=== PATIENT | male | born 1965 | race American Indian/Alaskan Native ===

== ENCOUNTER 2017-03-02 18:58 | Emergency (ER) | payer OTHER ==
[~2017-03-02] VITALS: Ht 195.6 cm; Wt 126.2 kg
[~2017-03-02 18:58] MED LIST: ACETAMINOPHEN325 M1 PO; AMOXICILLIN500 MG PO; FLAGYL500 MG PO; LEVAQUIN500 MG PO; OMEPRAZOLE20 MG PO; TESSALON PERLE100 MG PO; TRAMADOL HCL50 MG PO; ZITHROMAX500 MG PO
[2017-03-02] MEDS ORDERED: STROMECTOL3 MG PO (20:11)
[2017-03-02] MEDS ORDERED: TOPAMAX50 MG PO (20:12)
[2017-03-02] MEDS ORDERED: IMITREX50 MG PO (20:14)
[2017-03-02] MEDS ORDERED: ZOFRAN4 MG PO (20:16)
== END 2017-03-03 | disposition home or self-care (01) ==
LOC: ED 18:58
DX: G40.89 Other seizures (principal); Z90.49 Acquired absence of other specified parts of digestive tract; Z88.5 Allergy status to narcotic agent; Z79.899 Other long term (current) drug therapy
CPT/HCPCS: 36415; 70450; 80053; 81001; 83735; 85025; 96374; 96375; 99284; J2270; J2405; J7030

== ENCOUNTER 2017-06-12 13:51 | Emergency (ER) | payer OTHER ==
[~2017-06-12] VITALS: Ht 195.6 cm; Wt 113.4 kg
[~2017-06-12 13:51] MED LIST changes: +IMITREX50 MG PO; +STROMECTOL3 MG PO; +TOPAMAX50 MG PO; +ZOFRAN4 MG PO
[2017-06-12] MEDS ORDERED: KETOROLAC TROME10 MG PO (16:06)
== END 2017-06-12 14:05 | disposition home or self-care (01) ==
LOC: ED 13:51
DX: Z00.8 Encounter for other general examination (principal)

== ENCOUNTER 2017-06-12 15:22 | Emergency (ER) | payer OTHER ==
[~2017-06-12] VITALS: Ht 195.6 cm; Wt 113.4 kg
[2017-06-12] MEDS ORDERED: KETOROLAC TROME10 MG PO (16:06)
== END 2017-06-12 16:15 | disposition home or self-care (01) ==
LOC: ED 15:22
DX: S60.221A Contusion of right hand, initial encounter (principal); M25.521 Pain in right elbow; Z90.49 Acquired absence of other specified parts of digestive tract; Z88.5 Allergy status to narcotic agent; Z79.899 Other long term (current) drug therapy; W01.0XXA Fall on same level from slipping, tripping and stumbling without subsequent striking against object, initial encounter
CPT/HCPCS: 73090; 73130; 99283

== ENCOUNTER 2018-03-14 12:41 | Emergency (ER) | payer BC ==
[~2018-03-14] VITALS: Ht 195.6 cm; Wt 113.5 kg
[~2018-03-14 12:41] MED LIST changes: +KETOROLAC TROME10 MG PO
== END 2018-03-14 13:45 | disposition home or self-care (01) ==
LOC: ED 12:41
PROC: 0HQ1XZZ Repair Face Skin, External Approach (ICD-10-PCS; principal; 2018-03-14)
DX: S01.111A Laceration without foreign body of right eyelid and periocular area, initial encounter (principal); Z88.5 Allergy status to narcotic agent; Z23 Encounter for immunization; W22.8XXA Striking against or struck by other objects, initial encounter
CPT/HCPCS: 12011; 90471; 90715; 99282

== ENCOUNTER 2020-12-03 09:31 | Emergency (ER) | payer BC ==
[~2020-12-03] VITALS: Ht 195.6 cm; Wt 113.5 kg
--- OUTSIDE RECORDS SUMMARY | 2020-12-03 09:34 | XMS ---
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 Care History Medical/Surgical 03/15/2018 [facility] - Patient is currently established with [facility]. If patient is seen in the ED during business hours. Please contact CHWs at [facility]. Care Recommendation: This patient has had 5 or more Emergency Department visits in the last 12 months.\T\nbsp; Patient requires education on the scope and purpose of the ED as an acute care provider not a Primary Care Provider and should not be utilized for chronic conditions.\T\nbsp; These are guidelines and the provider should exercise clinical judgment when providing care. E.D. VISIT COUNT (12 MO.) 1 [facility] TOTAL 1 NOTE: Visits indicate total known visits. ED/UCC VISIT TRACKING (12 MO.) 12/03/2020 09:[address] [facility] [place] TYPE: Emergency COMPLAINT: - SEIZURE INPATIENT VISIT TRACKING (12 MO.) No inpatient visits to display in this time frame [email or web address]
--- NOTE | 2020-12-03 13:57 | EKG ---
[facility] [address] [facility] [place], [place] [address] Signed Normal sinus rhythm Normal ECG Confirmed by RICHIE ELLISON DO ([id number]) on 12/03/2020 1:57:11 PM Electronically Signed By: RICHIE ELLISON DO 12/03/20 1357 PATIENT NAME: NETTA DAVIS Electrocardiogram DATE OF : 67 PHYSICIAN: RICHIE ELLISON DO REPORT #: [id number] REPORT IS CONFIDENTIAL AND NOT TO BE RELEASED WITHOUT AUTHORIZATION
== END 2020-12-03 15:38 | disposition home or self-care (01) ==
LOC: ED 09:31
DX: G40.909 Epilepsy, unspecified, not intractable, without status epilepticus (principal); Z20.822 Contact with and (suspected) exposure to COVID-19; Z88.5 Allergy status to narcotic agent
CPT/HCPCS: 80053; 81001; 85025; 93005; 93010; 96374; 96375; 99284-25; C9803; J2060; Q2009; U0003

== ENCOUNTER 2022-12-22 10:30 | Day surgery (SDC) | payer BC ==
[2022-12-20 10:38] VITALS: BP 126/89
[~2022-12-22] VITALS: Ht 195.6 cm; Wt 123.6 kg
[~2022-12-22 10:30] MED LIST changes: +ONDANSETRON ODT8 MG PO; +OSTERA TABLET1 EACH PO; +OXYCODONE HCL5 MG PO
[2022-12-22 10:42] VITALS: BP 142/84
--- NOTE | 2022-12-22 12:33 | NUR ---
12/22/22 1233 [place] 1223-PATIENT ARRIVED TO PACU ON 4L NC RR EVEN. PATIENT LAYING PRONE AROSUES TO VERBAL STIMULI DENIES PAIN OR NAUSEA. IVF INFUSING. BANDAID TO BACK CDI. 1230-PATIENT SLEEPING AROUSES TO VERBAL SITMULI DENIES PAIN OR NASUEA. PLACED ON RA RR EVEN 94%
[2022-12-22 12:59] VITALS: BP 100/63
--- NOTE | 2022-12-27 15:50 | PATH ---
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 See attached. D64.9 (anemia, unspecified) DIAGNOSIS SUMMARY: Peripheral blood - Unremarkable. - No circulating blasts are identified. Bone marrow biopsy and aspiration: - Hypercellular marrow, 80%, with 1% blasts. - Trilineage hematopoiesis with no significant dyspoiesis. - Megakaryocytic hyperplasia with no atypia. - 6% polyclonal plasma cells. - Increased PAX5-positive B-cells. - Decreased marrow iron stores by Prussian Blue staining. - See Diagnostic Comment. DIAGNOSTIC COMMENT: The marrow is hypercellular (80%) with megakaryocytic hyperplasia. PAX5-positive B-cells are mildly increased at 5% with no atypical aggregates. Flow cytometry analysis of the lymphocytes was unremarkable. B-cell gene rearrangement studies are pending, and the result will be reported in an addendum. The etiology for the hypercellular marrow is unclear. No significant dyspoiesis was identified. Potential etiologies for the hypercellular marrow would include infection (viral), drug effect (i.e. steroids), autoimmune conditions, or liver disease. A myeloproliferative neoplasm is not favored but a JAK2 V617F mutation analysis is requested and the result will be reported in an addendum. Clinical correlation is needed. Marrow iron stores appeared decreased by Prussian Blue staining. Correlation with serum iron studies is suggested. THOMASP:C2NR HISTORICAL SUMMARY: 57-year-old male with no prior hematology history in the [employer] data base. He has a history of ITP in 1994 treated with prednisone and splenectomy. He PATIENT NAME: NETTA DAVIS PATHOLOGY DATE OF : 67 REPORT #: [id number] PHYSICIAN: DANIELA PATHOLOGY PCP: DIXIE ROBLES PAC REPORT IS CONFIDENTIAL AND NOT TO BE RELEASED WITHOUT AUTHORIZATION [facility] [address] [place], [place] [address] Signed presents for evaluation of a clinical history of hypoplastic anemia. PERIPHERAL BLOOD: HEMOGRAM (12/22/2022): WBC 5.6 K/ul, RBC 4.69 M/ul, HGB 13.0 g/dl, HCT 39.1%, MCV 83.5 fl, MCH 27.7 pg, MCHC 33.2 g/dl, RDW 16.8%, PLT 323 K/ul, MPV 8.9 fl. Absolute neutrophil count 1,900/ul. AUTOMATED DIFFERENTIAL COUNT: Neutrophils 33.1%, lymphocytes 54.3%, monocytes 8.0%, eosinophils 3.8%, basophils 0.8%. The red blood cells are normocytic and normochromic with mild anisopoikilocytosis. The neutrophils are relatively decreased with an unremarkable morphology. Lymphocytes are composed of small mature appearing forms and large granular lymphocytes. Platelets appear normal in number and morphology with no platelet clumping or RBC microangiopathic effect identified. No blasts are identified. BONE MARROW: ASPIRATE SMEARS/TOUCH IMPRINT: The aspirate smears are adequate for evaluation. Scattered erythroid precursors show adequate maturation with essentially normal morphology. The myeloid precursors show full maturation with unremarkable morphology. Plasma cells appear mildly increased with a normal morphology. There is no increase in blasts. Megakaryocytes are identified with a normal morphology. BONE MARROW DIFFERENTIAL COUNT (300 cells): Blasts 1%, promyelocytes 1%, myelocytes 7%, metamyelocytes/bands/segs 28%, erythroid precursors 36%, lymphocytes 11%, monocytes 6%, eosinophils 4%, plasma cells 6%. M:E ratio: 1.1:1 BONE MARROW CORE BIOPSY/ASPIRATE CLOT/CELL BLOCK: The aspirate clot section and the core biopsy are adequate for evaluation. The core biopsy demonstrates unremarkable trabecular bone. The cellularity is increased for age, estimated at 80%. The erythroid precursors are within normal limits with essentially unremarkable maturation. The myeloid precursors are unremarkable with no significant dyspoiesis. Blasts are not increased. Plasma cells appear mildly increased with a normal morphology. Megakaryocytes appear increased in number with a normal morphology. No granulomas, atypical lymphoid aggregates or foreign malignant cells are detected. SPECIAL STAINS (with adequate controls): - iron (aspirate smear): Marrow iron stores appear decreased by Prussian Blue staining. No ring sideroblasts are identified. PATIENT NAME: NETTA DAVIS PATHOLOGY DATE OF : 67 REPORT #: [id number] PHYSICIAN: DANIELA PATHOLOGY PCP: DIXIE ROBLES REPORT IS CONFIDENTIAL AND NOT TO BE RELEASED WITHOUT AUTHORIZATION [facility] [address] [place] [id number] Signed - iron (cell block): Marrow iron stores appear decreased by Prussian Blue staining. No ring sideroblasts are identified. - PAS (block A1): Increased megakaryocytes with a normal morphology. IMMUNOHISTOCHEMISTRY STAINS (performed on block A1 with adequate controls). - CD3: 5-8% with focal small aggregates. - CD8: 3% - CD71: 40% - PAX5: 5%, increased with no aggregates. - CD138: 6% - REGULO [place] and Lambda: Polyclonal marking in the plasma cells. FLOW CYTOMETRY: Bone marrow, flow cytometry: - No diagnostic abnormal populations are identified by flow cytometry. - See Comment. COMMENT: The majority of the gated lymphocytes are T-cells with a normal marking pattern. The B-cells are unremarkable with no light chain restriction or aberrant marking. Blasts are not increased. No aberrant marking is detected in the myeloid or monocyte gate areas. Plasma cells are not increased. Correlation with histologic findings is required. FLOW CYTOMETRY ANALYSIS: FLOW DIFFERENTIAL (% Total CD45 vs. SSC gating): Myeloid 65%; Lymphoid 15%; Monocyte 4%; Dim CD45/Blast: 1.6%. Cell Count: 4.5 x 10*3/uL. POPULATION ANALYSIS: BLASTS: Analysis of the dim CD45 gate demonstrates 1.6% myeloblasts by CD34/CD117 and 7.0% hematogones. LYMPHOID CELLS: The lymphocyte gate comprises 15% of total events and includes 66% T-cells with a CD4:CD8 ratio of 0.9:1 and normal mcneill T-cell antigen expression. 32% of lymphocytes are polyclonal B-cells with a kappa:lambda ratio of 2.0:1. The remainders are NK-cells. MYELOID CELLS: The myeloid population comprises 65% of the total events. No aberrant immunophenotypic expression is detected. MONOCYTES: The monocyte population comprises 4% of the total events. Monocytes are not increased. No aberrant immunophenotypic expression is detected. PLASMA CELLS: 0.8% plasma cells are detected in the screening gate neg-dimCD45/CD38. Plasma cells are CD45 dim and positive for CD19. ANTIBODIES USED: KAPPA, LAMBDA, CD20, CD10, CD19, CD23, CD38, CD16, CD56, CD8, CD5, CD2, CD4, CD7, CD3, CD14, CD33, CD13, HLADR, CD34, CD117, CD15, CD45: TOTAL ANTIBODIES PATIENT NAME: NETTA DAVIS PATHOLOGY DATE OF : 67 REPORT #: [id number] PHYSICIAN: DANIELA PATHOLOGY PCP: DIXIE ROBLES PAC REPORT IS CONFIDENTIAL AND NOT TO BE RELEASED WITHOUT AUTHORIZATION [facility] [address] [place], [place] [address] Signed USED: 23. DKW FINAL DIAGNOSIS PERFORMED BY: Fausto Haley MD, Dec 23 2022 1:39PM CYTOGENETICS: Chromosome analysis is pending, and the result will be reported in an addendum. B-CELL (GAMMA) GENE REARRANGEMENT PCR ANALYSIS: Because of increased B-cells in a setting of prior splenectomy, B-cell gene rearrangement studies are requested, and the result will be reported in an addendum. GROSS DESCRIPTION: Two specimens are received in two containers. A. The specimen, labeled and designated "December, bone marrow core biopsy," is received in formalin and consists of a red-maria, cylindrical core of bone (1.3 cm in length x 0.2-0.3 cm in diameter). The specimen is submitted entirely in cassette (A1) following decalcification in Immunocal. B. The specimen, labeled and designated "December, bone marrow clot biopsy," is received in formalin and consists of a portion of red-brown clot-like material (2.0 x 1.1 x 0.4 cm in aggregate). The specimen is submitted entirely in cassette (B1). VB (under the direct supervision of a pathologist) The Gross Description was prepared using a voice recognition system. The report was reviewed for accuracy; however, sound-alike word errors, addition and/or deletions may occur. If there is any question about this report, please contact Client Services. ADDITIONAL NOTES: Immunohistochemical and/or in situ hybridization studies were performed on this case with the appropriate positive controls that react as expected. This test was developed and its performance characteristics determined by [email or web address]. It has not been cleared or approved by the U.S. Food and Drug Administration. The FDA has determined that such clearance or approval is not necessary. This test is used for clinical purposes. It should not be regarded as investigational or for research. [email or web address] is certified under the Clinical Laboratory Improvement Amendments of 1988 (CLIA) as qualified to perform high complexity clinical laboratory testing. This assay has not been validated for specimens that have been decalcified. PATIENT NAME: NETTA DAVIS PATHOLOGY DATE OF : 67 REPORT #: [id number] PHYSICIAN: DANIELA DISLA PCP: DIXIE ROBLES PAC REPORT IS CONFIDENTIAL AND NOT TO BE RELEASED WITHOUT AUTHORIZATION [address] [address] Signed In this case, certain antibodies were performed by both immunohistochemistry and flow cytometry analysis because flow cytometry analysis did not fully explain all the light microscopic findings. Immunohistochemistry aided in the analysis. Both methods are deemed medically necessary in this case. This test was developed and its performance characteristics determined by [email or web address]. It has not been cleared or approved by the US Food and Drug Administration. The FDA does not require this test to go through premarket FDA review. This test is used for clinical purposes. It should not be regarded as investigational or for research. This laboratory is certified under the Clinical Laboratory Improvement Amendments (CLIA) as qualified to perform high complexity clinical laboratory testing. PERFORMING LABORATORY: The technical preparation was performed by [email or web address], [address] [place] [address] (CLIA#: [id number]). Professional interpretation was performed by [email or web address] [address] [id number] (CLIA#: [id number]). A portion of the technical component was performed by [email or web address], [address] [place] [address] (CLIA# [id number]). A portion of the technical component was performed by [email or web address], [address] [place] [id number] (CLIA#: [id number]). Professional interpretation was performed by [facility], [address] [place] [phone] (CLIA#: [id number]). IMAGES: [id number]: [id number] A: [id number] Diagnostician: Fausto Haley MD Pathologist Electronically Signed 12/27/2022 Copies: ~ PATIENT NAME: NETTA DAVIS PATHOLOGY DATE OF : 67 REPORT #: [id number] PHYSICIAN: DANIELA PATHOLOGY PCP: DIXIE ROBLES PAC REPORT IS CONFIDENTIAL AND NOT TO BE RELEASED WITHOUT AUTHORIZATION
== END 2022-12-22 13:05 | disposition home or self-care (01) ==
LOC: OPS 10:30 → DS 10:30 → OPS 12:00
PROVIDERS: ATTEND Specialist
DX: D75.89 Other specified diseases of blood and blood-forming organs (principal); D61.9 Aplastic anemia, unspecified; F17.220 Nicotine dependence, chewing tobacco, uncomplicated; Z88.5 Allergy status to narcotic agent; Z79.899 Other long term (current) drug therapy
CPT/HCPCS: 01112; 36415; 80053; 82024; 82533; 83615; 84403; 84436; 84443; 85007; 85025; 85651; 86038; 86140; 86431; J2704; J7121

== ENCOUNTER 2023-04-19 08:00 | Day surgery (SDC) | payer BC ==
[2023-04-14 14:33] VITALS: BP 118/76
[~2023-04-19] VITALS: Ht 195.6 cm; Wt 127.0 kg
[~2023-04-19 08:00] MED LIST changes: +NEURONTIN300 MG PO; +TRAMADOL HCL200 M1 PO
[2023-04-19 08:19] VITALS: BP 141/85
[2023-04-19] MEDS ORDERED: TYLENOL EXTRA500 MG PO (08:25)
[2023-04-19] MEDS ORDERED: GEN7T1 EACH TD (08:26)
[2023-04-19] MEDS ORDERED: IBUPROFEN600 MG PO (11:28)
[2023-04-19] MEDS ORDERED: OXYCODON-ACETA1 EAC2 PO (11:28)
[2023-04-19] MEDS ORDERED: ACETAMINOPHEN500 MG PO (11:29)
[2023-04-19 12:11] VITALS: BP 122/70
--- NOTE | 2023-04-19 12:14 | NUR ---
04/19/23 1214 Shraddha Escobar 1112- PT ARRIVES TO UNIT VIA STRETCHER FROM OR. PT IS NONRESPONSIVE TO TACTILE STIMULI AND REQUIRES JAW THRUST FOR SUPPORT. PT ON 8L OF O2 VIA MASK W/O2 >90% AT THIS TIME. PT RESPIRATIONS ARE EVEN AND UNLABORED, NO SIGNS OF DISTRESS. DONNY HATFIELD AT BEDSIDE FOR REPORT AT THIS TIME. 1118- PT TITRATED TO 6L VIA MASK, HEAD REPOSITIONED AT THIS TIME AND NO JAW THRUST REQUIRED. PT RESPIRATIONS EVEN AND UNLABORED, NO SIGNS OF DISTRESS. PT REMAINS UNRESPONSIVE TO TACTILE STIMULI. 1121- PT RESPONSIVE TO TACTILE STIMUL AT THIS TIME. PT RESPIRATIONS EVEN AND UNLABORED, NO SIGNS OF DISTRESS. 1123- PT REPORTS NO PAIN OR NAUSEA AND RESPONDS W/NODDING YES/NO. PT TITRATED TO 2L VIA MASK AT THIS TIME AND O2 SATS >90% VIA MASK. RESPIRATIONS EVEN AND UNLABORED. 1130- PT RESPONSIVE TO VERBAL STIMULI AND TITRATED TO RA AT THIS TIME, O2 >90% VIA PULSE OX. RESPIRATIONS EVEN AND UNLABORED. PT AWAKE AT THIS TIME AND ASKING APPROPRIATE QUESTIONS. PT REPORTS NO PAIN OR NAUSEA. 1131- MARIS ACOSTA AT BEDSIDE DISCUSSING PROCEDURE W/PT AT THIS TIME. PT ASKING QUESTIONS APPROPRIATELY AND IS ALERT/ORIENTED. 1140- PT REPORTS PAIN ONLY W/LIFTING SURGICAL EXTREMITY SIDE. PT REPORTS NO NAUSEA AT THIS TIME. PT MAINTAINING O2 SATS >90% VIA RA AT THIS TIME, RESPIRATIONS EVEN AND UNLABORED. 1150- PT TRANSPORTED TO DAY SURGERY UNIT VIA STRETCHER FROM PACU. PT REPORTS PAIN INCREASING IN MID BACK, PT STATES THIS IS CHRONIC AND WORSENS WHEN LAID DOWN FLAT. PT REPORTS TAKES 300 MG 3X DAILY W/TYLENOL FOR CHRONIC BACK PAIN AND HAS NOT TAKEN ANY TODAY THUS FAR. DORON MORALES AT BEDSIDE W/ FOR REPORT. HEAT PACK PROVIDED WRAPPED IN TOWEL BY THIS RN FOR PAIN RELIEF, PT SIGHS IN RELIEF W/REPOSITIONING AND APPLICATION OF HEAT PACK. CALL LIGHT WITHIN REACH, PT STATES NO FURTHER NEEDS AT THIS TIME.
--- NOTE | 2023-04-19 12:15 | NUR ---
1150: PT RETURNS TO DAY SURGERY FROM PACU. AWAKE AND ALERT ON ARRIVAL. VSS, RESP EVEN AND UNLABORED. DRESSING C/D/I. SCDS IN PLACE. DENIES NAUSEA. KAVIN PO INTAKE. REPORTS BACK PAIN, 01/29. CHRONIC PER PT. PT REPORTS NORMALLY TAKING SCHEDULED GABAPENTIN. TC PLACED TO MD MARIS. VERBAL ORDER RECEIVED TO ADMINISTERED 300MG GABAPENTIN PO. PHARMACY NOTIFIED. POC DISCUSSED AND PT AGREEABLE. NO NEEDS VOICED, CALL LIGHT WITHIN REACH
[2023-04-19 13:15] VITALS: BP 102/61
[2023-04-19 14:20] VITALS: BP 132/79
[2023-04-19 15:22] VITALS: BP 142/84
[2023-04-19 16:10] VITALS: BP 121/83
--- NOTE | 2023-04-19 17:17 | NUR ---
[id number]: PT CONT TO REST IN BED WITH SPOUSE AT BEDSIDE, RATES PAIN IN LEFT AXILLA 7/10 "SHARP AND DEEP" WHEN DESCRIBED. PT TOLERATES PO WELL WITH NO NAUSEA AND ADMINISTERED PO PAIN MEDS. CALL LIGHT WITHIN REACH. [id number]: PT RESTING IN BED WITH SPOUSE AT BEDSIDE. CONT TO HAVE CHRONIC BACK PAIN AND STATES LEFT AXILLA STILL HURTING. PT EDUCATED ABOUT PO PAIN MEDS AND TIME TO TAKE EFFECT. [id number]: PT RATES PAIN IN LEFT AXILLA 9/10 AND MEDICATED, SEE EMAR. [id number]: PT SPOUSE SHOWS THIS RN PT BACK AND STATES DISCOLORATION ON LEFT SIDE THAT IS NOT NORMALLY THERE. PT SPOUSE ASKS IF PT COULD HAVE INTERNAL BLEEDING AND DR. POLLOCK MADE AWARE OF PT STATUS. PT UP TO BATHROOM WITH RN ASSIST, UNSTREADY ON FEET AT BASELINE. PT ABLE TO VOID 275 MLS NANCY COLORED URINE AND BACK TO BED. [id number]: DR. POLLOCK IN TO ASSESS PT, DOES NOT THINK THAT PT HAS BRUISING AND GIVES VERBAL FOR PO DILAUDID AND ALSO WRITES PRESCRIPTION FOR PT AT HOME. [id number]: LUNCH ORDERED FOR PT AT THIS TIME. PT CONT TO REST IN BED WITH SPOUSE AT BEDSIDE. [id number]: PT STATES PAIN IN LEFT AXILLA IS BETTER AND RATES 3/10 BUT STATES THAT CHRONIC BACK PAIN "IS SUPER BAD." PT READY TO GO HOME AT THIS TIME TO BE MORE COMFORTABLE. PT DRESSES SELF WITH HELP FROM SPOUSE AND ENCOURAGED TO OPEN CURTAIN WHEN FINISHED. [id number]: IV REMOVED WNL AND PRESSURE COBAN PLACED. DC INSTRUCTIONS GIVEN VERBALLY AND WRITTEN TO PT AND SPOUSE. PAIN PRESCRIPTIONS INSIDE DC FOLDER AND SPOUSE AWARE OF NEED TO TAKE TO PHARMACY TO HAVE FILLED. [id number]: PT DC FROM DS TREATMENT ROOM TO SPOUSE WAITING AT HOSPITAL FRONT ENTRANCE IN PERSONAL VEHICLE VIA WC TO HOME.
--- NOTE | 2023-04-21 10:42 | OR ---
[facility] [address] [place], [place] [address] Signed DATE OF OPERATION: 04/19/2023 SURGEON: Jericho Pollock MD PREOPERATIVE DIAGNOSES: 1. Diffuse lymphadenopathy. 2. Obesity. POSTOPERATIVE DIAGNOSES: 1. Diffuse lymphadenopathy. 2. Obesity. PROCEDURE: Excision of deep left axillary lymph nodes x2. ANESTHESIA: General LMA, [place] Pineda CRNA INDICATIONS: This 57-year-old white man is a patient of Dr. Stacy and additionally Dr. Garcia. He has diffuse adenopathy most recently demonstrated bilateral axillary adenopathy. He has a distant history of ITP in 1994, treated with splenectomy with good results. He has had bone marrow biopsy undertaken by Dr. 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 An MRI performed in February 2023 at [facility] showed extensive cervical adenopathy and retroperitoneal and iliac lymph node enlargement as well. Consideration is made he may have lymphoma. He has no constitutional symptoms of night sweats, though he has had a fair amount of fatigue. The ultrasound of the axilla on right and left sides on April 12, 2023, under the direction of Dr. Garcia showed bilateral enlarged axillary lymph nodes. The left was 2.1 cm and the right 1.7 cm. He has been initiated on testosterone replacement therapy for a very low testosterone level. This no doubt it is related to his Klinefelter syndrome. He is admitted at this time to undergo left axillary lymph node biopsy for diagnosis for strong suspicion of lymphoma. FINDINGS: Palpable adenopathy of left axilla was noted. The excised lymph node was 2.5 to 3 cm in size. An additional lymph node was excised similarly. The lymph node appeared highly probable to be lymphoma clinically. Of the two specimens, one did have pigmentation within the lymph node and although not melanin was unusual in its appearance for that Electronically Signed By: JERICHO POLLOCK MD 04/21/23 1042 PATIENT NAME: NETTA DAVIS OPERATIVE REPORT DATE OF : 67 REPORT #: [id number] PHYSICIAN: JERICHO POLLOCK MD PCP: TREMAYNE STACY MD REPORT IS CONFIDENTIAL AND NOT TO BE RELEASED WITHOUT AUTHORIZATION [facility] [address] [place], [place] [address] Signed reason. There were additional palpable lymph nodes in the axilla, which were left in situ. DESCRIPTION OF PROCEDURE: The patient was brought to the operating room, given a general LMA type anesthetic. Preoperative antibiotic Ancef was given. Sequential compression device stockings were used. The left axilla was clipped and prepared with a chlorhexidine solution and draped sterilely. Palpation of the axilla identified deep axillary adenopathy. A transverse incision was made in the mid axilla. Dissection was carried through the dermis and subcutaneous tissue with electrocautery. The axillary fat pad fascial envelope was incised allowing for palpation deep within the axilla itself. Easily noted was a relatively large palpable lymph node. This was grasped with an Allis clamp, elevated and the pedicle secured with hemostats and later secured with 2-0 Vicryl suture. The original lymph node was excised. A call to the Pathology Department to receive the lymph node fresh went unanswered and on that basis, the lymph node was placed in saline anticipating coordination with the Pathology Department later. A fresh lymph node was deemed advisable for advanced testing to characterize lymphoma if present. Additional palpation revealed another similar size lymph node, which was excised in this similar way also. This was placed in formalin as a backup specimen should there be any issue with processing of the original specimen. Irrigation was undertaken. The wound was closed in layers with interrupted 2-0 Vicryl and a running subcuticular 3-0 Vicryl for the skin. Steri-Strips were applied as was an Acticoat dressing. Blood loss was minimal overall. Sponge, needle, and instrument counts reported as correct x3. Jericho Pollock MD JM/MODL /[id number] cc: MD Ashwin Rivera MD Electronically Signed By: JERICHO POLLOCK MD 04/21/23 1042 PATIENT NAME: NETTA DAVIS OPERATIVE REPORT DATE OF : 67 REPORT #: [id number] PHYSICIAN: JERICHO POLLOCK MD PCP: TREMAYNE STACY MD REPORT IS CONFIDENTIAL AND NOT TO BE RELEASED WITHOUT AUTHORIZATION [address] [address] Signed Copies: ASHWIN GARCIA MD ~ Electronically Signed By: JERICHO POLLOCK MD 04/21/23 1042 PATIENT NAME: NETTA DAVIS OPERATIVE REPORT DATE OF : 67 REPORT #: [id number] PHYSICIAN: JERICHO POLLOCK MD PCP: TREMAYNE STACY MD REPORT IS CONFIDENTIAL AND NOT TO BE RELEASED WITHOUT AUTHORIZATION
--- NOTE | 2023-04-22 15:32 | PATH ---
[facility] [address] [facility] [place], [place] [address] Signed SPECIMEN(S): A LEFT AXILLARY LYMPH NODE SPECIMEN(S): B ADDITIONAL LEFT AXILLARY LYMPH NODE SPECIMEN SOURCE: A. LEFT AXILLARY LYMPH NODE B. ADDITIONAL LEFT AXILLARY LYMPH NODE CLINICAL HISTORY: A. Left axillary lymph node. Axillary lymphadenopathy. B. Additional left axillary lymph node. Axillary lymphadenopathy. Access for lymphoma. FINAL PATHOLOGIC DIAGNOSIS: A-B. Lymph nodes, left axillary, excision: - Florid reactive follicular hyperplasia, see description and comment COMMENT: Concurrent flow cytometric analysis demonstrates no diagnostic abnormal populations, supporting the above interpretation. The presence of pigmented macrophages may suggest a component of dermatopathic lymphadenitis, though clinical correlation is needed. BRP The majority of the gated lymphocytes are T-cells with an essentially normal marking pattern. The B-cells are unremarkable with no light chain restriction or aberrant marking. Blasts are not increased. Correlation with histologic findings is recommended to exclude disorders that can have normal flow cytometry findings such as Classical Hodgkin lymphoma, some non-Hodgkin lymphomas, and non-hematopoietic tumors. FLOW CYTOMETRY ANALYSIS: FLOW DIFFERENTIAL (% Total CD45 vs. SSC gating): Lymphoid 95%; Debris 1%. Cell Count: 1.3 x 10*4/uL. Total Viability: 90% POPULATION ANALYSIS: LYMPHOID CELLS: The lymphocyte gate comprises 95% of total events and includes 41% T-cells with a CD4:CD8 ratio of 4.4:1 and normal mcneill T-cell antigen expression. 59% of lymphocytes are polyclonal B-cells with a kappa:lambda ratio of 1.5:1. A polyclonal B-cell subset is detected (6% of lymphocytes, 6% of total events) co-expressing CD10 and CD20 with a kappa:lambda ratio of 2.3:1. PLASMA/PLASMACYTOID CELLS: 3.4% plasma/plasmacytoid cells are detected in the screening gate neg-dim CD45/CD38 expressing CD45 dim and positive for CD19. PATIENT NAME: NETTA DAVIS PATHOLOGY DATE OF : 67 REPORT #: [id number] PHYSICIAN: DANIELA PATHOLOGY PCP: TREMAYNE HAYES MD REPORT IS CONFIDENTIAL AND NOT TO BE RELEASED WITHOUT AUTHORIZATION [facility] [address] [place], [place] [address] Signed ANTIBODIES USED: KAPPA, LAMBDA, CD20, CD10, CD19, CD23, CD38, CD16, CD56, CD8, CD5, CD2, CD4, CD7, CD3, CD45, 7AAD: TOTAL ANTIBODIES USED: 17. JNB FLOW CYTOMETRY: Left axillary lymph node, flow cytometry: - No diagnostic abnormal populations are identified by flow cytometry. - See comment. MICROSCOPIC EXAMINATION: Histologic sections of all submitted blocks (or IHC as applicable) are digitally scanned and examined. These findings, together with the gross examination, support the pathologic diagnosis. Sections of parts A and B show similar morphologic findings and are described together. The lymph node architecture demonstrates expanded secondary follicles of varying size with preserved polarity and mild paracortical expansion. There are scattered pigmented macrophages, more prominent in part B. No malignant epithelial cells, atypical lymphoid cells, or granuloma are seen. Immunohistochemical stains demonstrate the following: CD3: Stains paracortical T cells CD5: Stains paracortical T cells CD10: Positive in lymphoid follicles CD20: Positive in lymphoid follicles CD21: Stains the follicular dendritic cell meshwork CD23: Stains the follicular dendritic cell meshwork CD43: Stains paracortical T cells CD138: Stains scattered plasma cells BCL2: Positive in paracortical T cells; negative in germinal centers BCL6: Positive in germinal centers Cyclin D1: Negative PAX5: Positive in lymphoid follicles Ki-67: Positive in germinal centers, proliferation index approximately 5% [place] (inna): Stains scattered plasma cells Lambda (inna): Stains scattered plasma cells BRP GROSS DESCRIPTION: A. The specimen, labeled and designated "December, left axillary lymph node," is received fresh and consists of irregular shaped yellow-maria fibroadipose tissue PATIENT NAME: NETTA DAVIS PATHOLOGY DATE OF : 67 REPORT #: [id number] PHYSICIAN: DANIELA PATHOLOGY PCP: TREMAYNE HAYES MD REPORT IS CONFIDENTIAL AND NOT TO BE RELEASED WITHOUT AUTHORIZATION [facility] [address] [place], [place] [address] Signed that measure 4.2 x 2.5 x 1.8 cm. Sectioning through the specimens reveal pink-maria nodule that measure 3.5 x 1.5 x 1.5 cm. Sectioning through the nodule reveals a pink-maria fleshy surface. Part of the nodule is placed in RPMI and sent for lymphoma triage. The remaining of the specimen is sectioned and entirely submitted in (A1-A3). B. The specimen, labeled and designated "December, additional left axillary lymph node," is received in formalin and consists of one irregular shaped yellow-maria fibroadipose tissue that measure 4.2 x 2.0 x 1.5 cm. Sectioning through the specimen to reveal pink-maria nodule that measure 2.2 x 2.0 x 1.5 cm. Sectioning through the nodule reveal pink-maria, fleshy surface. Entire nodule is submitted in (B1-B2). JS (under the direct supervision of a pathologist) The Gross Description was prepared using a voice recognition system. The report was reviewed for accuracy; however, sound-alike word errors, addition and/or deletions may occur. If there is any question about this report, please contact Client Services. ADDITIONAL NOTES: Immunohistochemical and/or in situ hybridization studies were performed on this case with the appropriate positive controls that react as expected. This test was developed and its performance characteristics determined by [employer]. It has not been cleared or approved by the U.S. Food and Drug Administration. The FDA has determined that such clearance or approval is not necessary. This test is used for clinical purposes. It should not be regarded as investigational or for research. [employer] [employer] is certified under the Clinical Laboratory Improvement Amendments of 1988 (CLIA) as qualified to perform high complexity clinical laboratory testing. This assay has not been validated for specimens that have been decalcified. PERFORMING LABORATORY: Technical component was performed by [facility], [address] [place] [address] (CLIA# [id number]). Professional interpretation was performed by [facility] - [address] [id number] Diagnostician: Emilio Bruno MD Pathologist Electronically Signed 04/22/2023 PATIENT NAME: NETTA DAVIS PATHOLOGY DATE OF : 67 REPORT #: [id number] PHYSICIAN: INCYTE PATHOLOGY PCP: TREMAYNE HAYES MD REPORT IS CONFIDENTIAL AND NOT TO BE RELEASED WITHOUT AUTHORIZATION [address] [place], [place] [address] Signed Copies: ~ PATIENT NAME: RYANNETTANEETA BOWENS PATHOLOGY DATE OF : 67 REPORT #: [id number] PHYSICIAN: DANIELA PATHOLOGY PCP: TREMAYNE HAYES MD REPORT IS CONFIDENTIAL AND NOT TO BE RELEASED WITHOUT AUTHORIZATION
== END 2023-04-19 16:39 | disposition home or self-care (01) ==
LOC: DS 08:00
PROVIDERS: ATTEND Surgery
PROC: 07B60ZZ Excision of Left Axillary Lymphatic, Open Approach (ICD-10-PCS; principal; 2023-04-19 09:35)
DX: R59.0 Localized enlarged lymph nodes (principal); E29.1 Testicular hypofunction; Z90.49 Acquired absence of other specified parts of digestive tract; Z90.81 Acquired absence of spleen; E66.9 Obesity, unspecified; Z68.33 Body mass index [BMI] 33.0-33.9, adult
CPT/HCPCS: 01610; J0131; J0690; J1100; J1644; J1885; J2001; J2405; J2704; J3010; J3475; J3490; J7121

== ENCOUNTER 2023-08-17 10:17 | Emergency (ER) | payer BC ==
[~2023-08-17] VITALS: Ht 195.6 cm; Wt 123.8 kg
[~2023-08-17 10:17] MED LIST changes: +ACETAMINOPHEN500 MG PO; +GEN7T1 EACH TD; +IBUPROFEN600 MG PO; +OXYCODON-ACETA1 EAC2 PO; +TYLENOL EXTRA500 MG PO
[2023-08-17] MEDS ORDERED: CYCLOBENZAPRINE10 MG PO (13:27)
[2023-08-17] MEDS ORDERED: METHYLPREDNISOLO4 M1 PO (13:27)
[2023-08-17 13:34] VITALS: BP 132/81
== END 2023-08-17 13:36 | disposition home or self-care (01) ==
LOC: ED 10:17
DX: R20.2 Paresthesia of skin (principal); M47.812 Spondylosis without myelopathy or radiculopathy, cervical region; M48.02 Spinal stenosis, cervical region; Z79.899 Other long term (current) drug therapy; Z88.5 Allergy status to narcotic agent; Z88.7 Allergy status to serum and vaccine
CPT/HCPCS: 72141; 99284-25

== ENCOUNTER 2024-01-02 09:49 | Emergency (ER) | payer BC ==
[~2024-01-02] VITALS: Ht 195.6 cm; Wt 120.0 kg
[~2024-01-02 09:49] MED LIST changes: +CYCLOBENZAPRINE10 MG PO; +METHYLPREDNISOLO4 M1 PO
[2024-01-02 12:00] VITALS: BP 137/62
== END 2024-01-02 12:01 | disposition home or self-care (01) ==
LOC: ED 09:49
DX: S63.92XA Sprain of unspecified part of left wrist and hand, initial encounter (principal); W18.30XA Fall on same level, unspecified, initial encounter; Z88.7 Allergy status to serum and vaccine; Z88.5 Allergy status to narcotic agent
CPT/HCPCS: 73130; 99283-25

== ENCOUNTER 2024-09-19 18:25 | Emergency (ER) | payer BC ==
[~2024-09-19] VITALS: Ht 195.6 cm; Wt 126.6 kg
[2024-09-19] MEDS ORDERED: TESTOSTERONE75 G1 TD (20:33)
[2024-09-19 21:16] LABS: HEMATOCRIT 37.6 % (35.0-50.0); HEMOGLOBIN 12.7 g/dL (12.0-18.0); MCH 29.4 (27-36); MCHC 33.8 g/dl (30-36); PLATELET COUNT 304 K/uL (140-440); RBC 4.33 M/ul (4.3-5.7); RDW 14.6 (10.5-15.0)
[2024-09-19 21:28] LABS: EOSINOPHILS, MANUAL DIFF 3; LYMPHOCYTES, MANUAL DIFF 41; MONOCYTES, MANUAL DIFF 3; NEUTROPHILS, MANUAL DIFF 53
[2024-09-19 21:33] LABS: ALBUMIN 3.4 g/dL (3.4-5.0); ALBUMIN/GLOBULIN RATIO 0.68 (1.1-2.4); ANION GAP 11.3 (7-21); BILIRUBIN, TOTAL 0.3 ng/dL (0.2-1.0); BUN/CREATININE RATIO 19.54 (6.0-28.6); CREATININE, SERUM 0.87 mg/dL (0.70-1.30); MAGNESIUM 1.9 mg/dL (1.8-2.4); POTASSIUM 4.3 mmol/L (3.5-5.1); PROTEIN, TOTAL 8.4 g/dL (6.4-8.2)
[2024-09-20 02:26] VITALS: BP 134/89
== END 2024-09-20 02:28 | disposition home or self-care (01) ==
LOC: ED 18:25
PROVIDERS: Internal Medicine
DX: S00.03XA Contusion of scalp, initial encounter (principal); X58.XXXA Exposure to other specified factors, initial encounter; Z88.5 Allergy status to narcotic agent; Z88.7 Allergy status to serum and vaccine; Z79.899 Other long term (current) drug therapy
CPT/HCPCS: 36415; 70450; 70496; 70498; 71045; 80053; 83735; 84484; 85025; 99284-25; Q9967

== ENCOUNTER 2025-02-10 11:09 | Emergency (ER) | payer BC ==
[~2025-02-10] VITALS: Ht 195.6 cm; Wt 130.6 kg
[~2025-02-10 11:09] MED LIST changes: +TESTOSTERONE75 G1 TD
[2025-02-10 11:21] LABS: BASOPHILS 0.7 % (0.2-1.2); HEMATOCRIT 38.2 % (40.1-51.0); HEMOGLOBIN 12.6 g/dL (13.7-17.5); LYMPHOCYTES 46.8 % (21.8-53.1); MCH 26.3 PG (25.7-32.2); MCV 79.7 fL (79.0-92.2); MONOCYTES 10.5 % (5.3-12.2); NEUTROPHILS 38.7 % (34.0-67.9); PLATELET COUNT 454 K/uL (163-337); RBC 4.79 M/uL (4.63-6.08)
[2025-02-10 11:29] LABS: INR 1.04 (0.80-1.30); PARTIAL THROMBOPLASTIN TIME 24.5 Sec (22.9-41.3); PROTIME 13.2 Sec (11.2-14.2)
[2025-02-10 11:42] LABS: ACETAMINOPHEN 0 ug/mL (10-30); ALBUMIN 3.5 g/dL (3.4-5.0); ALBUMIN/GLOBULIN RATIO 0.67 (1.1-2.4); ALCOHOL, MEDICAL <3 ng/dL (<3); ALKALINE PHOSPHATASE 58 U/L (46-116); ALT (SGPT) 25 U/L (14-59); ANION GAP 16.9 (7-21); AST (SGOT) 22 U/L (15-37); BILIRUBIN, TOTAL 0.5 mg/dL (0.2-1.0); BUN/CREATININE RATIO 13.48 (6.0-28.6); CALCIUM 8.9 mg/dL (8.5-10.1); CARBON DIOXIDE 22 mmol/L (21-32); CHLORIDE 103 mmol/L (98-107); CREATINE KINASE 54 U/L (39-308); CREATININE, SERUM 0.89 mg/dL (0.70-1.30); GLOMERULAR FILTRATION RATE,EST 99 mL/min (>60); POTASSIUM 3.9 mmol/L (3.5-5.1); PROTEIN, TOTAL 8.7 g/dL (6.4-8.2); SALICYLATE 0.9 mg/dL (2.8-20.0); TSH, 3RD GENERATION 1.994 uIU/mL (0.358-3.740); UREA NITROGEN 12 mg/dL (7-18)
[2025-02-10] MEDS ORDERED: TESTOSTERO200 MG/1 M IM (11:45)
[2025-02-10] MEDS ORDERED: LIDOCAINE HCL 4% 1 EACH PATCH TD ONE (20:15)
[2025-02-10] MEDS ORDERED: KETOROLAC TROMETHAMINE 60 MG/2 ML VIAL IM ONE (20:15)
[2025-02-10] MEDS ORDERED: KETOROLAC TROMETHAMINE 30 MG/ML VIAL IV ONE (20:30)
[2025-02-10] MEDS ORDERED: LIDOCAINE PATCH REMOVAL 1 EA TD SCH (21:00)
--- NOTE | 2025-02-10 22:50 | EKG ---
[facility] [address] [facility] [place] [address] Signed Normal sinus rhythm Minimal voltage criteria for LVH, may be normal variant ( R in aVL ) Borderline ECG When compared with ECG of 03-DEC-2020 09:35, No significant change was found Confirmed by Latrice Taylor MD () on 02/10/2025 10:50:28 PM Electronically Signed By: LATRICE TAYLOR MD 02/10/25 2250 PATIENT NAME: NETTA DAVIS Electrocardiogram DATE OF : 67 PHYSICIAN: LATRICE TAYLOR MD REPORT #: [id number] REPORT IS CONFIDENTIAL AND NOT TO BE RELEASED WITHOUT AUTHORIZATION
[2025-02-10 23:27] LABS: BILIRUBIN, URINE POSITIVE (negative); BLOOD/HGB, URINE NEGATIVE (Negative); KETONE, URINE TRACE (Negative); LEUK ESTERASE, URINE NEGATIVE (negative); NITRITE, URINE NEGATIVE (negative)
[2025-02-10 23:42] LABS: AMPHETAMINES, URINE NEGATIVE (NEGATIVE); BARBITURATES, URINE NEGATIVE (NEGATIVE); BENZODIAZEPINE, URINE NEGATIVE (NEGATIVE); BUPRENORPHINE, URINE NEGATIVE (NEGATIVE); CANNABINOID, URINE NEGATIVE (NEGATIVE); COCAINE, URINE NEGATIVE (NEGATIVE); ECSTASY, URINE NEGATIVE (NEGATIVE); FENTANYL, URINE NEGATIVE (NEGATIVE); METHADONE, URINE NEGATIVE (NEGATIVE); OPIATES, URINE NEGATIVE (NEGATIVE); OXYCODONE, URINE NEGATIVE (NEGATIVE); PHENCYCLIDINE, URINE NEGATIVE (NEGATIVE)
[2025-02-11] MEDS ORDERED: ondansetron HCL 4 MG/2 ML VIAL ONE (00:21)
[2025-02-11] MEDS ORDERED: ondansetron HCL 4 MG/2 ML VIAL IV ONE (00:30)
[2025-02-11] MEDS ORDERED: ONDANSETRON 4 MG TAB ODT SL PRN (07:00)
[2025-02-11] MEDS ORDERED: LIDOCAINE PATCH REMOVAL 1 EA TD SCH (08:30)
[2025-02-11] MEDS ORDERED: NICOTINE 21 MG/24 HR 1 EA TDSY TD SCH (12:56)
[2025-02-11] MEDS ORDERED: GABAPENTIN 300 MG CAP PO SCH (14:58)
[2025-02-11] MEDS ORDERED: IBUPROFEN 600 MG TAB PO ONE (23:15)
[2025-02-12 12:23] LABS: CORONAVIRUS COVID-19 AG NEGATIVE (NEGATIVE); INFLUENZA A AG NEGATIVE (NEGATIVE); INFLUENZA B AG NEGATIVE (NEGATIVE)
[2025-02-12] MEDS ORDERED: IBUPROFEN 600 MG TAB PO ONE (22:45)
[2025-02-13] MEDS ORDERED: IBUPROFEN 600 MG TAB PO PRN (04:30)
[2025-02-13 10:57] VITALS: BP 138/68
== END 2025-02-13 10:59 | disposition home or self-care (01) ==
LOC: ED 11:09
PROVIDERS: Emergency Medicine
DX: T14.91XA Suicide attempt, initial encounter (principal); T40.422A Poisoning by tramadol, intentional self-harm, initial encounter; T42.6X2A Poisoning by other antiepileptic and sedative-hypnotic drugs, intentional self-harm, initial encounter; F32.A Depression, unspecified; Z79.899 Other long term (current) drug therapy; Z88.5 Allergy status to narcotic agent; Z88.7 Allergy status to serum and vaccine
CPT/HCPCS: 36415; 80053; 80307; 81003; 82550; 84443; 85025; 85610; 85730; 93005; 93010; 94799; 96374; 96375; 99285-25; A9270; G0480; J1885; J2405; Q3014